=== PATIENT | male | born 1935 | race Caucasian/White ===

== ENCOUNTER 2018-06-05 10:38 | Emergency (ER) | payer MEDICARE, BC ==
[2018-06-05 10:50] VITALS: BP 121/66
--- NOTE | 2018-06-05 11:11 | UC ---
Throat Pain/Nasal Ger HPI - HPI Summary HPI Summary: sore throat x 2 days nasal congestion , cough , pnd no fever, no chills - History of Current Complaint Chief Complaint: UCGeneralIllness Stated Complaint: SORE THROAT Time Seen by Provider: 06/05/18 10:58 Hx Obtained From: Patient Onset/Duration: Gradual Onset, Lasting Days - 2, Still Present Severity: Moderate Pain Intensity: 4 Cough: Nonproductive Associated Signs & Symptoms: Positive: Nasal Discharge. Negative: Wheezing, Hoarseness, Sinus Discomfort, Fever, Vomiting, Rash - Allergies/Home Medications Allergies/Adverse Reactions: Allergies Allergy/AdvReac Type Severity Reaction Status Date / Time No Known Allergies Allergy Verified 06/05/18 10:50 Home Medications: Home Medications Atorvastatin* 20 mg PO DAILY 06/05/18 [History Confirmed 06/05/18] Finasteride 10 mg PO DAILY 06/05/18 [History Confirmed 06/05/18] Tamsulosin CAP* 0.4 mg PO DAILY 06/05/18 [History Confirmed 06/05/18] PMH/Surg Hx/FS Hx/Imm Hx - Additional Past Medical History Additional PMH: non hodgkins lymphoma - Surgical History Surgical History: None - Family History Known Family History: Negative: Diabetes - Social History Alcohol Use: Occasionally Substance Use Type: None Smoking Status (MU): Never Smoked Tobacco Review of Systems Constitutional: Negative Skin: Negative Eyes: Negative ENT: Sore Throat, Nasal Discharge Respiratory: Negative Cardiovascular: Negative Is Patient Immunocompromised?: No All Other Systems Reviewed And Are Negative: Yes Physical Exam Triage Information Reviewed: Yes Appearance: Well-Appearing, No Pain Distress, Well-Nourished Vital Signs: Initial Vital Signs Temp 97.7 F 06/05/18 10:44 Pulse 73 06/05/18 10:44 Resp 16 06/05/18 10:44 BP 121/66 06/05/18 10:44 Pulse Ox 99 06/05/18 10:44 Vital Signs Reviewed: Yes Eye Exam: Normal Eyes: Positive: Conjunctiva Clear ENT: Positive: Normal ENT inspection, Hearing grossly normal, Pharynx normal Neck: Positive: Supple, Nontender, No Lymphadenopathy Respiratory: Positive: Chest non-tender, Lungs clear, Normal breath sounds Cardiovascular: Positive: RRR, No Murmur, Pulses Normal Skin Exam: Normal Throat Pain/Nasal Course/Dx - Differential Dx/Diagnosis Provider Diagnoses: viral pharyngitis Discharge - Sign-Out/Discharge Documenting (check all that apply): Patient Departure All imaging exams completed and their final reports reviewed: No Studies - Discharge Plan Condition: Stable Disposition: HOME Patient Education Materials: Pharyngitis (ED) Referrals: No Primary Care Phys,NOPCP [Primary Care Provider] - If Needed Additional Instructions: viral sore throat negative rapid strep - Billing Disposition and Condition Condition: STABLE Disposition: Home
== END 2018-06-05 11:18 | disposition home or self-care (01) ==
LOC: UCEAST 10:38
DX: J02.8 Acute pharyngitis due to other specified organisms (principal); R09.81 Nasal congestion
CPT/HCPCS: 87651; 99201; G0463

== ENCOUNTER 2018-06-08 11:07 | Emergency (ER) | payer MEDICARE, BC ==
[2018-06-08 11:51] VITALS: BP 122/77
--- NOTE | 2018-06-08 12:12 | UC ---
Eye Complaint HPI - HPI Summary HPI Summary: 82-year-old male with history of non-Hodgkin's lymphoma presents for right eye redness, itchiness, and drainage. He was seen here on 06/05/2018 and diagnosed with a viral URI. States he continues to have significant nasal congestion and postnasal drip however his sore throat has improved. States right eye redness began yesterday. He has noticed some clear to white drainage with some crusting of the eye. Denies fever, chills, injury to the eye, visual disturbances, or photophobia. States he is scheduled to begin chemotherapy next week. - History of Current Complaint Chief Complaint: UCEye Stated Complaint: EYE COMPLAINT Time Seen by Provider: 06/08/18 11:52 Hx Obtained From: Patient Onset/Duration: Gradual Onset, Lasting Days - 1 Timing: Constant Severity Currently: Mild Pain Intensity: 6 Location of Injury: Conjunctiva Alleviating Factor(s): Nothing Associated Signs And Symptoms: Positive: Drainage (Purulent). Negative: Photophobia, Vision Impairment Bilateral, Fever, Swelling - Allergies/Home Medications Allergies/Adverse Reactions: Allergies Allergy/AdvReac Type Severity Reaction Status Date / Time No Known Allergies Allergy Verified 06/08/18 11:49 PMH/Surg Hx/FS Hx/Imm Hx Endocrine History: Dyslipidemia Other GI/ History: BPH Other Cancer History: non-Hodgkin's lymphoma - Surgical History Surgical History: None - Family History Family History: Noncontributory - Social History Occupation: Retired Lives: With Family Alcohol Use: Occasionally Substance Use Type: None Smoking Status (MU): Never Smoked Tobacco Review of Systems Constitutional: Negative Skin: Negative Eyes: Drainage, Eye Redness ENT: Nasal Discharge, Sinus Congestion Respiratory: Negative Cardiovascular: Negative Gastrointestinal: Negative Is Patient Immunocompromised?: No All Other Systems Reviewed And Are Negative: Yes Physical Exam Triage Information Reviewed: Yes Appearance: Well-Appearing, No Pain Distress, Well-Nourished Vital Signs: Initial Vital Signs Temp 98.1 F 06/08/18 11:47 Pulse 68 06/08/18 11:47 Resp 17 06/08/18 11:47 BP 122/77 06/08/18 11:47 Pulse Ox 100 06/08/18 11:47 Vital Signs Reviewed: Yes Eyes: Positive: Conjunctiva Inflamed - Right eye with some mild erythema of the right lower lid.. Negative: Discharge ENT: Positive: Pharyngeal erythema - Mild with postnasal drip., Nasal congestion , Nasal drainage, TM dull - Left, TM red - Left, Uvula midline. Negative: Tonsillar swelling, Tonsillar exudate, Trismus, Muffled voice, Hoarse voice, Sinus tenderness Neck: Positive: Supple, Nontender, No Lymphadenopathy Respiratory: Positive: Lungs clear, Normal breath sounds, No respiratory distress Cardiovascular: Positive: RRR, No Murmur Neurological: Positive: Alert Skin Exam: Normal Eye Complaint Course/Dx - Course Course Of Treatment: 82-year-old male presents with onset of right eye redness, itchiness, and drainage yesterday. He was evaluated at this facility 3 days ago and diagnosed with a viral URI. On exam today was noted to have some right conjunctival injection and lower lid erythema. No drainage was noted. Remainder of exam was unremarkable except for an erythematous and dull left TM and mild pharyngeal erythema with postnasal drip. Since he is scheduled to begin chemotherapy next week for non-Hodgkin's lymphoma I will begin treatment for a left otitis media with Augmentin twice a day 10 days which would also cover him for a bacterial conjunctivitis. He is to notify his physicians that he is under treatment for the ear infection prior to beginning his chemotherapy. - Differential Dx/Diagnosis Provider Diagnoses: Left acute otitis media, right bacterial conjunctivis Discharge - Sign-Out/Discharge Documenting (check all that apply): Patient Departure All imaging exams completed and their final reports reviewed: No Studies - Discharge Plan Condition: Stable Disposition: HOME Prescriptions: Amoxicillin/Clavulanate TAB* [Augmentin TAB 875*] 875 mg PO BID #20 tab Patient Education Materials: Ear Infection (ED), Conjunctivitis (ED) Referrals: No Primary Care Phys,NOPCP [Primary Care Provider] - Additional Instructions: Ear exam shows an infection of the left ear and your right eye redness and drainage are suspicious for conjunctivitis. I will start should on an oral antibiotic for the ear infection which would also treat for the conjunctivitis. Start Augmentin 1 tablet twice a day for 10 days. Be sure to take this with food to avoid upset stomach. It is important to finish this entire course of antibiotic even if you're feeling better. You may continue to use an [id number] decongestant as needed for the nasal congestion. May take acetaminophen (Tylenol) or ibuprofen (Advil, Motrin) according to directions as needed for any aches paints a fever. Be sure to notify your doctor that you are being treated for the ear infection prior to starting her chemotherapy next week. Seek immediate medical attention if you have a persistent fever greater than 100.5 F despite taking acetaminophen or ibuprofen, have any chest pain, shortness of breath, or any worsening of symptoms. - Billing Disposition and Condition Condition: STABLE Disposition: Home
== END 2018-06-08 12:42 | disposition home or self-care (01) ==
LOC: UCEAST 11:07
DX: H10.31 Unspecified acute conjunctivitis, right eye (principal); H66.92 Otitis media, unspecified, left ear
CPT/HCPCS: 99212; G0463